=== PATIENT | female | born 1995 | race Caucasian/White ===

== ENCOUNTER 2021-07-21 12:21 | Emergency (ER) | payer SELFPAY ==
[~2021-07-21] VITALS: Ht 167.6 cm; Wt 64.4 kg
[2021-07-21 12:26] VITALS: BP 116/80
--- NOTE | 2021-07-21 13:30 | NUR ---
ATTEMPTED TO CALL PT IN LOBBY, NO ANSWER
--- NOTE | 2021-07-21 13:48 | NUR ---
SECOND ATTEMPT TO CALL PATIENT IN LOBBY, NO ANSWER.
--- NOTE | 2021-07-21 15:00 | NUR ---
THIRD ATTEMPT AT CALLING PT, NO ANSWER. PATIENT LEFT WITHOUT BEING SEEN BY DR. EASON/CLINTON. NO FURTHER CARE PROVIDED FOR PATIENT.
== END 2021-07-21 15:00 | disposition left against medical advice (07) ==
LOC: MED 12:21
DX: R51.9 Headache, unspecified (principal); R11.10 Vomiting, unspecified; Z53.21 Procedure and treatment not carried out due to patient leaving prior to being seen by health care provider